=== PATIENT | female | born 1995 | race African-American/Black ===

== ENCOUNTER 2021-06-11 15:36 | Emergency (ER) | payer MEDICAID, OTHER ==
[~2021-06-11] VITALS: Ht 157.5 cm; Wt 89.0 kg
[2021-06-11 16:09] VITALS: BP 124/79
== END 2021-06-11 20:00 | disposition left against medical advice (07) ==
LOC: ER 15:36
DX: Z53.21 Procedure and treatment not carried out due to patient leaving prior to being seen by health care provider (principal)

== ENCOUNTER 2022-05-15 20:51 | Emergency (ER) | payer MEDICAID, OTHER ==
[~2022-05-15] VITALS: Ht 157.5 cm; Wt 101.4 kg
[2022-05-16] MEDS ORDERED: IBUP-2029 MT (02:11)
[2022-05-16 03:08] VITALS: BP 121/72
== END 2022-05-16 03:10 | disposition home or self-care (01) ==
LOC: ER 20:51
DX: M94.0 Chondrocostal junction syndrome [Tietze] (principal)
CPT/HCPCS: 71045; 93005; 99283